=== PATIENT | male | born 1955 | race American Indian/Alaskan Native ===

== ENCOUNTER 2017-06-07 07:16 | Outpatient (CLI) | payer OTHER ==
--- NOTE | 2017-06-07 11:45 | Nuclear Medicine Report ---
BONE SCAN: History: Malignant neoplasm of prostate. Comparison: Noncontrast CT abdomen and pelvis performed the same day. After injection of isotope, gamma camera imaging of the bony system was done. There is a normal uptake of isotope throughout the bony structures without areas of significantly increased or decreased uptake. Normal uptake in the urinary system is seen. IMPRESSION: Unremarkable bone scan. No evidence for metastatic disease to the osseous structures.
--- NOTE | 2017-06-07 11:47 | Cat Scan Report ---
CT ABDOMEN PELVIS WITHOUT CONTRAST: HISTORY: Malignant neoplasm of prostate. COMPARISON: No previous CAT scan at this facility. TECHNIQUE: Helical CT in 1.25mm intervals without IV contrast. Sagittal and coronal reconstructions. FINDINGS: Lung bases: normal. Liver: normal. Biliary system: normal. Pancreas: normal. Spleen: normal. Kidneys/ureters/bladder: normal. Adrenal glands: normal. Aorta: normal. Intestines: normal. Appendix: normal. Pelvic viscera: normal. Musculoskeletal: normal. IMPRESSION: Unremarkable CT scan of the abdomen and pelvis without contrast. No evidence for metastatic disease or acute process.
== END 2017-06-07 07:17 | disposition home or self-care (01) ==
LOC: CT 07:16
PROVIDERS: ATTEND Urology
DX: C61 Malignant neoplasm of prostate (principal)
CPT/HCPCS: 74176; 78306; A9503